=== PATIENT | female | born 1945 | race Caucasian/White ===

== ENCOUNTER → 2018-03-21 | Outpatient (CLI) | payer MEDICARE | END | disposition home or self-care (01) | LOC: CFH 13:56 | PROVIDERS: ATTEND Internal Medicine | DX: N63.13 Unspecified lump in the right breast, lower outer quadrant (principal); N64.9 Disorder of breast, unspecified | CPT/HCPCS: 76641; 77066; G0279 ==

== ENCOUNTER → 2020-01-27 | Outpatient (CLI) | payer MEDICARE | END | disposition home or self-care (01) | LOC: CFH 14:00 | PROVIDERS: ATTEND Internal Medicine | DX: Z12.31 Encounter for screening mammogram for malignant neoplasm of breast (principal); N64.89 Other specified disorders of breast | CPT/HCPCS: 77063; 77067 ==